=== PATIENT | male | born 1970 | race Caucasian/White ===

== ENCOUNTER 2018-04-27 12:32 | Emergency (ER) | payer OTHER ==
--- NOTE | 2018-04-27 14:23 | EDPHY ---
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 He was sitting in court when he suddenly felt "my sinuses open." He then developed a rapid heartbeat. Lasted for 15-20 seconds. He denies any chest pain. He had no lightheadedness or dizziness. No shortness of breath. Yesterday the patient had a couple of episodes sharp pain radiating from the center of his chest to the left side of his chest. This was less than a few seconds. Patient has had no recent fatigue. No history of heart disease. REVIEW OF SYSTEMS: 10 SYSTEMS WERE REVEIWED AND ARE NEGATIVE WITH THE EXCEPTION OF THE ELEMENTS MENTIONED IN THE HISTORY OF PRESENT ILLNESS. Past Medical/Surgical History: Includes hypertension Social history: Patient does not smoke Family history: Patient is adopted Smoking Status: Never smoked Physical Exam: 36.7, 195/105, 89, 18, 97% on room air GENERAL: Well-appearing, in no acute distress, alert. HEENT: Eyes normal to inspection, normal pharynx, no signs of dehydration. NECK: Normal, supple. RESPIRATORY: Clear to auscultation bilaterally, no rales, rhonchi or wheezing. CVS: Regular rate and rhythm, no rubs, murmurs, or gallops. ABDOMEN: Soft, nontender, nondistended, no organomegaly. BACK: Normal to inspection, no CVA tenderness. SKIN: Normal color, no rash, warm, dry. No pallor. EXTREMITIES: No pedal edema, no calf tenderness, no Homans sign or cords, no joint swelling. NEURO/PSYCH: Alert and oriented, normal mood and affect, normal motor sensory exam. Constitutional: Initial Vital Signs Temperature (C) 36.7 C 04/27/18 12:40 Heart Rate 89 04/27/18 12:40 Respiratory Rate 18 04/27/18 12:40 Blood Pressure 195/105 H 04/27/18 12:40 O2 Sat (%) 97 04/27/18 12:40 O2 Delivery Mode Room Air Allergies/Adverse Reactions: No Known Allergies Allergy (Unverified 04/27/18 12:40) Home Medications: Medication Instructions Recorded Metoprolol Tartrate 25 mg PO BID 30 Days tablet 04/27/18 Medical Decision Making ED Course/Re-evaluation: The in the emergency department discussed possible etiologies with the patient. I answered all his questions. IV was placed. Laboratory studies, EKG and chest x-ray were ordered. EKG shows normal sinus rhythm, normal rate, normal axis, normal intervals. There are no ST or T-wave abnormalities. EKG is normal as interpreted by me. Troponin is negative. D-dimer is negative. I discussed the case with Cardiology. They came to the emergency department evaluated the patient. They will set up the patient for an outpatient evaluation. They started the patient on metoprolol 25 mg twice daily. They asked that I write the prescription. Patient feels comfortable plan. He was given warnings prior to leaving. He will return with worsening symptoms. Differential Diagnosis: My differential includes but is not limited to dysrhythmia, ACS, acute ID, pulmonary embolus, dissection, aneurysm, myocarditis, pericarditis - Data Points Laboratory Results: Laboratory Results 04/27/18 14:01 04/27/18 14:01 04/27/18 04/27/18 04/27/18 14:15 14:01 14:01 WBC RBC Hgb Hct MCV MCH MCHC RDW Plt Count MPV Neut % (Auto) Lymph % (Auto) Hooker % (Auto) Eos % (Auto) Baso % (Auto) Nucleat RBC Rel Count Absolute Neuts (auto) Absolute Lymphs (auto) Absolute Monos (auto) Absolute Eos (auto) Absolute Basos (auto) Absolute Nucleated RBC Immature Gran % Immature Gran # D-Dimer 0.30 ug/mLFEU ug/mLFEU (0.00-0.50) Sodium 139 mEq/L mEq/L (135-145) Potassium 4.1 mEq/L mEq/L (3.5-5.2) Chloride 107 mEq/L mEq/L (97-110) Carbon Dioxide 24 mEq/l mEq/l (22-31) Anion Gap 8 mEq/L mEq/L (6-14) BUN 21 mg/dL mg/dL (7-23) Creatinine 0.9 mg/dL mg/dL (0.7-1.3) Estimated GFR > 60 Glucose 100 mg/dL mg/dL (70-100) Calcium 9.8 mg/dL mg/dL (8.5-10.4) POC Troponin I 0.00 ng/mL ng/mL (0.00-0.08) 04/27/18 14:01 WBC 7.41 10^3/uL 10^3/uL (3.80-9.50) RBC 5.31 10^6/uL 10^6/uL (4.40-6.38) Hgb 16.2 g/dL g/dL (13.7-17.5) Hct 47.8 % % (40.0-51.0) MCV 90.0 fL fL (81.5-99.8) MCH 30.5 pg pg (27.9-34.1) MCHC 33.9 g/dL g/dL (32.4-36.7) RDW 12.5 % % (11.5-15.2) Plt Count 198 10^3/uL 10^3/uL (150-400) MPV 11.6 fL fL (8.7-11.7) Neut % (Auto) 75.4 % H % (39.3-74.2) Lymph % (Auto) 15.2 % % (15.0-45.0) Hooker % (Auto) 8.1 % % (4.5-13.0) Eos % (Auto) 0.4 % L % (0.6-7.6) Baso % (Auto) 0.5 % % (0.3-1.7) Nucleat RBC Rel Count 0.0 % % (0.0-0.2) Absolute Neuts (auto) 5.58 10^3/uL 10^3/uL (1.70-6.50) Absolute Lymphs (auto) 1.13 10^3/uL 10^3/uL (1.00-3.00) Absolute Monos (auto) 0.60 10^3/uL 10^3/uL (0.30-0.80) Absolute Eos (auto) 0.03 10^3/uL 10^3/uL (0.03-0.40) Absolute Basos (auto) 0.04 10^3/uL 10^3/uL (0.02-0.10) Absolute Nucleated RBC 0.00 10^3/uL 10^3/uL (0-0.01) Immature Gran % 0.4 % % (0.0-1.1) Immature Gran # 0.03 10^3/uL 10^3/uL (0.00-0.10) D-Dimer Sodium Potassium Chloride Carbon Dioxide Anion Gap BUN Creatinine Estimated GFR Glucose Calcium POC Troponin I Point of Care Test Results: Chemistry 04/27/18 14:15 POC Troponin I 0.00 ng/mL ng/mL (0.00-0.08) Departure - Departure Disposition: Home, Routine, Self-Care Clinical Impression: Palpitations Condition: Good Instructions: Heart Palpitations (ED) Additional Instructions: Follow-up with Cardiology. Use your measuring device as instructed by Cardiology. Return with increasing chest pain, shortness of breath or any other concerns. Referrals: [facility] [Provider Group] - As per Instructions Prescriptions: Metoprolol Tartrate 25 mg PO BID 30 Days tablet
[2018-04-27 14:34] LABS: PLATELET COUNT 198 10^3/uL (150-400)
[2018-04-27 16:09] VITALS: BP 174/104
--- NOTE | 2018-04-27 16:31 | GCON ---
[f rep st] CONSULTATION CARDIAC CONSULTATION DATE OF CONSULTATION: 04/27/2018 CHIEF COMPLAINT: Palpitations. 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 He denied any symptoms associated with it, such as shortness of breath, presyncope, or chest pain. His symptoms lasted for approximately 15 seconds and then resolved. He denies any prior history of syncope or palpitations. He denies any e xcessive caffeine use or alcohol use. He is an active individual and denies any exertional chest dis comfort. He was first told that he was hypertensive approximately 8 years ago. Since then, it does appear darin t his blood pressure has increased, but he has never received treatment. PAST MEDICAL HISTORY: Hypertension. PAST SURGICAL HISTORY: Noncontributory. FAMILY HISTORY: He is adopted. SOCIAL HISTORY: He denies any excessive caffeine or alcohol use. He denies any drug use. He has go od support from his colleagues. HOME MEDICATIONS: None. ALLERGIES: No known drug allergies. REVIEW OF SYSTEMS: Ten-point review of systems is negative, except for what is stated in the H and P . PHYSICAL EXAMINATION: GENERAL: Patient appears in no acute distress. VITAL SIGNS: Blood pressure 163/102, heart rate 74, oxygen saturation 95% on room air afebrile. HEENT: Within normal limits. N DAINA: No carotid bruits or JVD present. LUNGS: Clear to auscultation. No wheezes, rhonchi, or crac kles auscultated. CARDIAC: Regular rate and rhythm, without any significant murmurs, rubs, or jean-baptiste ps appreciated. ABDOMEN: Soft, nontender, nondistended. Bowel sounds present. EXTREMITIES: Palpa ble pulses bilaterally without any evidence of edema. NEUROLOGIC: Nonfocal. PSYCHIATRIC: Mood and affect appropriate. SKIN: No obvious rashes or ecchymosis identified. LABORATORY DATA: Troponin negative x1. BMP within normal limits. D-dimer 0.3. CBC within normal l imits. DIAGNOSTIC STUDIES: EKG reveals normal sinus rhythm with heart rate of 82, NE interval of 144, QTc o f 411. There were no ischemic EKG changes. ASSESSMENT: The patient is a 47-year-old male who has a history of untreated hypertension and presen ts with palpitations. 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 His sympto ms lasted for approximately 15 seconds and then resolved. He denies any presyncope, syncope, or ches t pain. His EKG is nonischemic and his troponin is negative. We discussed different options, includ ing Cartia versus event monitor. Given that he has had 1 event, I think it is unlikely we would capt ure anything with an event monitor. He has opted for Cartia. He will also have an echocardiogram to ensure his heart is structurally normal. He has a history of untreated hypertension and has been hypertensive throughout his hospitalization. I have recommended beginning metoprolol 25 mg b.i.d. to help with his blood pressure and possible ar rhythmia. He is scheduled for an outpatient echocardiogram at our office on May 03 at 9:15. He is sched uled for a followup visit on 05/19 at 11:15. /[id number]/MODL
--- NOTE | 2018-04-27 20:20 | CPEKG ---
Test Reason : OPEN Blood Pressure : / mmHG Vent. Rate : 082 BPM Atrial Rate : 082 BPM P-R Int : 144 ms QRS Dur : 083 ms QT Int : 352 ms P-R-T Axes : 052 066 036 degrees QTc Int : 411 ms Sinus rhythm Confirmed by Paris Bingham ([id number]) on 04/27/2018 8:19:58 PM Referred By: PARIS BINGHAM Confirmed By:Paris Bingham
== END 2018-04-27 16:09 | disposition home or self-care (01) ==
DX: R00.2 Palpitations (principal); I10 Essential (primary) hypertension
CPT/HCPCS: 84484-ER

== ENCOUNTER 2018-04-28 15:11 | Emergency (ER) | payer OTHER ==
--- NOTE | 2018-04-28 16:07 | EDPHY ---
H & P Time Seen by Provider: 04/28/18 15:54 HPI/ROS: Chief complaint. Rapid heart rate HPI. 39-year-old male presents emergency department with episode of rapid heart beat this afternoon. He was seen yesterday for similar symptoms and had rapid heart beat of 15-20 seconds. Seen by Cardiology after normal workup in the ED. Started on metoprolol 25 mg twice daily. He took his 1st dose of metoprolol last evening and then a dose this morning. He was at home at rest and again had a sensation that felt like his sinuses were opening and then had an episode of fast heart rate. He says it was not as fast and it was shorter in duration. He does not know how fast it was. It lasted about 10-15 seconds. He had 5-10 minutes of tightness in his left anterior chest without radiation. No shortness of breath. Not ill. No cough or fever. Feels normal and back to baseline now. He does needs say he had mild sensation of tingling to the left side of his head during the episode ROS 10 systems were reviewed and negative with the exception of the elements mentioned in the history of present illness Past Medical/Surgical History: Hypertension Social History: Single, nonsmoker, no alcohol Smoking Status: Never smoked Physical Exam: General Appearance: Well-developed male mild distress. Vital signs are stable Eyes: Pupils equal and round no pallor or injection. ENT, Mouth: Mucous membranes are moist. Respiratory: There are no retractions, lungs are clear to auscultation. Cardiovascular: Regular rate and rhythm. Gastrointestinal: Abdomen is soft and nontender, no masses, bowel sounds normal. Neurological: Awake and alert, sensory and motor exams grossly normal. Skin: Warm and dry, no rashes. Musculoskeletal: Neck is supple nontender. Extremities symmetrical, full range of motion. Psychiatric: Patient is oriented X 3, there is no agitation. Constitutional: Initial Vital Signs Temperature (C) 36.9 C 04/28/18 15:27 Heart Rate 73 04/28/18 15:27 Respiratory Rate 16 04/28/18 15:27 Blood Pressure 187/93 H 04/28/18 15:27 O2 Sat (%) 99 04/28/18 15:27 O2 Delivery Mode Room Air Allergies/Adverse Reactions: No Known Allergies Allergy (Unverified 04/28/18 15:26) Home Medications: Medication Instructions Recorded Metoprolol Tartrate 25 mg PO BID 30 Days tablet 04/27/18 Medical Decision Making - Diagnostics EKG Interpretation: EKG interpreted by me shows normal sinus rhythm normal interval and axis. QRS is normal there is no significant ST elevation or depression. No arrhythmia. The rate is 76 Procedures: IV normal saline, monitor ED Course/Re-evaluation: Re-evaluation at 5:25 p.m.. Patient tells me that he had a episode of fast heart beat. We scanned the monitor and it appears that he had a brief episode of sinus tachycardia at at about rate of 115. Patient and I discussed laboratory evaluation, treatment plan including criteria for return importance of follow-up and further evaluation. He expresses understanding and agreement. He is offered admission but would like to follow up as outpatient I consulted discussed case with Dr. Morris for Cardiology and they will see the patient in the office tomorrow morning Differential Diagnosis: Patient is having palpitations and episode of rapid heart rate. On the monitor it appears he has an episode of sinus tachycardia. No evidence of acute coronary syndrome - Data Points Laboratory Results: Laboratory Results 04/28/18 16:16 04/28/18 16:16 04/28/18 04/28/18 04/28/18 16:20 16:16 16:16 WBC 7.01 10^3/uL 10^3/uL (3.80-9.50) RBC 5.18 10^6/uL 10^6/uL (4.40-6.38) Hgb 16.0 g/dL g/dL (13.7-17.5) Hct 46.7 % % (40.0-51.0) MCV 90.2 fL fL (81.5-99.8) MCH 30.9 pg pg (27.9-34.1) MCHC 34.3 g/dL g/dL (32.4-36.7) RDW 12.5 % % (11.5-15.2) Plt Count 191 10^3/uL 10^3/uL (150-400) MPV 11.9 fL H fL (8.7-11.7) Neut % (Auto) 68.5 % % (39.3-74.2) Lymph % (Auto) 20.4 % % (15.0-45.0) Sterling % (Auto) 9.0 % % (4.5-13.0) Eos % (Auto) 1.1 % % (0.6-7.6) Baso % (Auto) 0.7 % % (0.3-1.7) Nucleat RBC Rel Count 0.0 % % (0.0-0.2) Absolute Neuts (auto) 4.80 10^3/uL 10^3/uL (1.70-6.50) Absolute Lymphs (auto) 1.43 10^3/uL 10^3/uL (1.00-3.00) Absolute Monos (auto) 0.63 10^3/uL 10^3/uL (0.30-0.80) Absolute Eos (auto) 0.08 10^3/uL 10^3/uL (0.03-0.40) Absolute Basos (auto) 0.05 10^3/uL 10^3/uL (0.02-0.10) Absolute Nucleated RBC 0.00 10^3/uL 10^3/uL (0-0.01) Immature Gran % 0.3 % % (0.0-1.1) Immature Gran # 0.02 10^3/uL 10^3/uL (0.00-0.10) Sodium 137 mEq/L mEq/L (135-145) Potassium 3.8 mEq/L mEq/L (3.5-5.2) Chloride 105 mEq/L mEq/L (97-110) Carbon Dioxide 24 mEq/l mEq/l (22-31) Anion Gap 8 mEq/L mEq/L (6-14) BUN 26 mg/dL H mg/dL (7-23) Creatinine 1.0 mg/dL mg/dL (0.7-1.3) Estimated GFR > 60 Glucose 106 mg/dL H mg/dL (70-100) Calcium 9.2 mg/dL mg/dL (8.5-10.4) POC Troponin I 0.00 ng/mL ng/mL (0.00-0.08) Medications Given: Discontinued Medications Sodium Chloride (Ns) 1,000 mls @ 0 mls/hr IV EDNOW ONE; Wide Open PRN Reason: Protocol Stop: 04/28/18 16:28 Last Admin: 04/28/18 16:57 Dose: 1,000 mls Point of Care Test Results: Chemistry 04/28/18 16:20 POC Troponin I 0.00 ng/mL ng/mL (0.00-0.08) Departure - Departure Disposition: Home, Routine, Self-Care Clinical Impression: Palpitations Condition: Good Instructions: Heart Palpitations (ED) Additional Instructions: Take the metoprolol as prescribed tonight and tomorrow morning Call Cardiology in the morning and they will see you in the office tomorrow. I spoke with Dr. Morris for Cardiology Return tonight for worsening symptoms Referrals: NONE *PRIMARY CARE P,. [Primary Care Provider] - As per Instructions Nicholas Morris MD [Medical Doctor] - 1 day without fail
[2018-04-28] MEDS ORDERED: NS 1,000 ML IV ONE (16:27)
[2018-04-28 16:34] LABS: PLATELET COUNT 191 10^3/uL (150-400)
--- NOTE | 2018-04-28 16:43 | CPEKG ---
Test Reason : OPEN Blood Pressure : / mmHG Vent. Rate : 076 BPM Atrial Rate : 076 BPM P-R Int : 152 ms QRS Dur : 082 ms QT Int : 364 ms P-R-T Axes : 050 058 052 degrees QTc Int : 410 ms Sinus rhythm Confirmed by Feng Ceron ([id number]) on 04/28/2018 4:42:37 PM Referred By: Charan Stock Confirmed By:Feng Ceron
[2018-04-28 17:52] VITALS: BP 174/91
== END 2018-04-28 17:52 | disposition home or self-care (01) ==
DX: R00.2 Palpitations (principal); I10 Essential (primary) hypertension; E86.9 Volume depletion, unspecified
CPT/HCPCS: 84484-ER